=== PATIENT | male | born 1975 | race Caucasian/White ===

== ENCOUNTER 2021-07-08 09:05 | Emergency (ER) | payer OTHER ==
[2021-07-08] MEDS ORDERED: IBUPROFEN 200 MG TAB PO ONE (09:38)
--- NOTE | 2021-07-08 10:45 | RAD REPORT ---
EXAM DESCRIPTION: RAD - Ankle Left 3 View - 07/08/2021 9:59 am CLINICAL HISTORY: Slip and fall, twisting injury, ankle pain COMPARISON: No remote imaging FINDINGS: No fracture, dislocation or periosteal reaction. No joint effusion seen. No joint space na rrowing. Ankle mortise within normal limits. Lateral and anterior soft tissue swelling is present. La rge spur is present at the Achilles attachment site. No foreign body. IMPRESSION: Soft tissue swelling with no left ankle fracture.
--- NOTE | 2021-07-08 10:47 | RAD REPORT ---
EXAM DESCRIPTION: RAD - Foot Right 3 View - 07/08/2021 9:59 am CLINICAL HISTORY: PAIN, slip and fall COMPARISON: No comparisons FINDINGS: No fracture, dislocation or periosteal reaction. Minimal degenerative change at the first MTP joint. There is joint space narrowing but no erosive or spurring component. Large spur at the Achilles attachment. No air or foreign body in the soft tissues. IMPRESSION: Negative right foot examination.
--- NOTE | 2021-07-08 11:09 | ER ---
Nurse's Notes [facility] Name: Lor Connell Age: 46 yrs Sex: Male : 1975 Arrival Date: 07/08/2021 Time: 09:12 Bed 8 Private MD: Diagnosis: Contusion of right foot;Sprain of unspecified ligament of left ankle Presentation: 07/08 09:16 Chief complaint: Patient states: Slipped in the shower last night at 1999, reports left jl7 ankle pain and swelling and pain to plantar aspect of right foot. Coronavirus screen: At this time, the client does not indicate any symptoms associated with coronavirus-19. Ebola Screen: No symptoms or risks identified at this time. Initial Sepsis Screen: Does the patient meet any 2 criteria? No. Patient's initial sepsis screen is negative. Does the patient have a suspected source of infection? No. Patient's initial sepsis screen is negative. Risk Assessment: Do you want to hurt yourself or someone else? Patient reports no desire to harm self or others. Onset of symptoms was July 07, 2021 at 20:00. Care prior to arrival: None. 09:16 Method Of Arrival: Law Enforcement: [place] [employer] jl7 09:16 Acuity: STERLING 4 jl7 Triage Assessment: 09:19 General: Appears in no apparent distress. uncomfortable, Behavior is calm, cooperative, jl7 appropriate for age. Pain: Complains of pain in lateral side of right heel and left lateral malleolus Pain currently is 4 out of 10 on a pain scale. Pain began 1 day ago. Is continuous. Neuro: Level of Consciousness is awake, alert, obeys commands, Oriented to person, place, time, situation. Cardiovascular: Patient's skin is warm and dry. Respiratory: Airway is patent Respiratory effort is even, unlabored, Respiratory pattern is regular, symmetrical. Derm: Skin is pink, warm \T\ dry. Musculoskeletal: Swelling present in left lateral malleolus. Historical: - Allergies: 09:19 Benadryl; jl7 - Home Meds: 09:19 lisinopril 20 mg Oral tab [Active]; jl7 - PMHx: 09:19 Hypertensive disorder; jl7 - PSHx: 09:19 left wrist; jl7 - Immunization history:: Client reports receiving the 2nd dose of the Covid vaccine. - Social history:: Smoking status: Patient denies any tobacco usage or history of. Screenin:21 Abuse screen: Denies threats or abuse. Denies injuries from another. Nutritional jl7 screening: No deficits noted. Tuberculosis screening: No symptoms or risk factors identified. 11:30 Fall Risk None identified. jl7 Assessment: 09:21 General: See triage assessment. jl7 10:30 Reassessment: Patient appears in no apparent distress at this time. Patient and/or jl7 family updated on plan of care and expected duration. Pain level reassessed. Patient is alert, oriented x 3, equal unlabored respirations, skin warm/dry/pink. Patient states symptoms have improved. 11:30 Reassessment: Awaiting crutches from tool crib supervisor. jl7 Vital Signs: 09:16 BP 116 / 82; Pulse 64; Resp 17; Temp 97.4; Pulse Ox 100% on R/A; Weight 83.91 kg; jl7 Height 5 ft. 6 in. (167.64 cm); Pain 4/10; 11:51 BP 141 / 99; Pulse 63; Resp 15; Pulse Ox 97% ; jl7 09:16 Body Mass Index 29.86 (83.91 kg, 167.64 cm) jl7 ED Course: 09:12 Patient arrived in ED. eb 09:16 Trudi Corrigan, RN is Primary Nurse. jl7 09:19 Triage completed. jl7 09:19 Arm band placed on right wrist. jl7 09:21 Patient has correct armband on for positive identification. Bed in low position. Call jl7 light in reach. Side rails up X 1. Security at bedside. Pulse ox on. NIBP on. 09:22 Tesfaye Loja NP is PHCP. jd3 09:22 Fadi Dillon MD is Attending Physician. jd3 10:00 Foot Right 3 View XRAY In Process Unspecified. EDMS 10:00 Ankle Left 3 View XRAY In Process Unspecified. EDMS 11:30 No provider procedures requiring assistance completed. jl7 11:55 Patient did not have IV access during this emergency room visit. Crutch training done. jl7 Air stirrup applied to left ankle. Administered Medications: 09:37 Drug: Ibuprofen 600 mg Route: PO; jl7 10:30 Follow up: Response: No adverse reaction; Pain is decreased jl7 Outcome: 11:08 Discharge ordered by . pm1 11:54 Discharged to Law Enforcement jl7 11:54 Condition: stable 11:54 Discharge instructions given to patient, police, Instructed on discharge instructions, follow up and referral plans. medication usage, crutch walking, Demonstrated understanding of instructions, follow-up care, medications, crutch walking, Prescriptions given X 1. 11:55 Patient left the ED. jl7 Signatures: Dispatcher [employer] EDIN Tesfaye Loja NP FULL STACK NET DEVELOPER pm1 Trudi Corrigan RN RN jl7 Anjum Santillan RN RN jd3 Susanna Arias Corrections: (The following items were deleted from the chart) 11:55 11:30 Patient did not have IV access during this emergency room visit. jl7 11:55 11:30 Crutch training done. Air stirrup applied to left ankle. jl7 jl7
--- NOTE | 2021-07-08 11:09 | EDPHYS ---
Physician Documentation [facility] Name: Lor Connell Age: 46 yrs Sex: Male : 1975 Arrival Date: 07/08/2021 Time: 09:12 Bed 8 Private MD: ED Physician Fadi Dillon HPI: 07/08 10:36 This 46 yrs old Male presents to ER via Law Enforcement with complaints of Ankle Injury.pm1 10:36 The patient presents with pain, that is acute, swelling. The complaints affect the left pm1 ankle. Onset: The symptoms/episode began/occurred yesterday. Context: The problem was sustained at custodial shower, resulted from slipping in the shower. He slipped inverting his left ankle and then hit the right lateral side of his foot against the wall, The patient can fully bear weight on the affected extremity. the patient is able to ambulate. Associated signs and symptoms: Pertinent positives: swelling, of the left lateral malleolus. Modifying factors: The symptoms are alleviated by elevation of extremity. Severity of symptoms: in the emergency department the symptoms are unchanged. Patient reports history of left ankle fracture. The patient has not recently seen a physician. Historical: - Allergies: 09:19 Benadryl; jl7 - Home Meds: 09:19 lisinopril 20 mg Oral tab [Active]; jl7 - PMHx: 09:19 Hypertensive disorder; jl7 - PSHx: 09:19 left wrist; jl7 - Immunization history:: Client reports receiving the 2nd dose of the Covid vaccine. - Social history:: Smoking status: Patient denies any tobacco usage or history of. ROS: 14:43 Constitutional: Negative for fever, chills, and weight loss, Cardiovascular: Negative pm1 for chest pain, palpitations, and edema, Respiratory: Negative for shortness of breath, cough, wheezing, and pleuritic chest pain, Abdomen/GI: Negative for abdominal pain, nausea, vomiting, diarrhea, and constipation. 14:43 Skin: Negative for injury, rash, and discoloration, Neuro: Negative for headache, weakness, numbness, tingling, and seizure. 14:43 MS/extremity: Positive for pain, swelling, tenderness, of the left lateral malleolus, tenderness lateral right foot, Negative for decreased range of motion, deformity. 14:43 All other systems are negative. Exam: 14:43 Constitutional: This is a well developed, well nourished patient who is awake, alert, pm1 and in no acute distress. Head/Face: Normocephalic, atraumatic. 14:43 Skin: Warm, dry with normal turgor. Normal color with no rashes, no lesions, and no evidence of cellulitis. 14:43 Cardiovascular: Exam negative for acute changes, Rate: normal, Rhythm: regular, Pulses: no pulse deficits are appreciated. 14:43 Respiratory: Exam negative for acute changes, respiratory distress, shortness of breath. 14:43 Musculoskeletal/extremity: Extremities: grossly normal except: noted in the left lateral malleolus: swelling, tenderness, There is no evidence of decreased ROM, noted in the lateral side of right foot: tenderness, no evidence of decreased ROM, deformity, ecchymosis, swelling, ROM: intact in all extremities. 14:43 Neuro: Exam negative for acute changes, Orientation: is normal, Mentation: is normal, Motor: moves all fours. Vital Signs: 09:16 BP 116 / 82; Pulse 64; Resp 17; Temp 97.4; Pulse Ox 100% on R/A; Weight 83.91 kg; jl7 Height 5 ft. 6 in. (167.64 cm); Pain 4/10; 11:51 BP 141 / 99; Pulse 63; Resp 15; Pulse Ox 97% ; jl7 09:16 Body Mass Index 29.86 (83.91 kg, 167.64 cm) jl7 MDM: 09:25 Patient medically screened. pm1 11:07 Data reviewed: vital signs. Data interpreted: Pulse oximetry: on room air is 100 %. pm1 Interpretation: normal. Counseling: I had a detailed discussion with the patient and/or guardian regarding: the historical points, exam findings, and any diagnostic results supporting the discharge/admit diagnosis, radiology results, the need for outpatient follow up, a orthopedic surgeon, to return to the emergency department if symptoms worsen or persist or if there are any questions or concerns that arise at home. 07/08 09:30 Order name: Foot Right 3 View XRAY; Complete Time: 11: pm1 07/08 09:30 Order name: Ankle Left 3 View XRAY; Complete Time: 11: pm1 07/08 09:30 Order name: Ice pack; Complete Time: 09:37 pm1 Administered Medications: 09:37 Drug: Ibuprofen 600 mg Route: PO; jl7 10:30 Follow up: Response: No adverse reaction; Pain is decreased jl7 Disposition: 15:47 Co-signature as Attending Physician, Fadi Dillon MD I agree with the assessment and kdr plan of care. Disposition Summary: 07/08/21 11:08 Discharge Ordered Location: Home pm1 Problem: new pm1 Symptoms: have improved pm1 Condition: Stable pm1 Diagnosis - Contusion of right foot pm1 - Sprain of unspecified ligament of left ankle pm1 Followup: pm1 - With: Emergency Department - When: As needed - Reason: Worsening of condition Followup: pm1 - With: Private Physician - When: 2 - 3 days - Reason: Recheck today's complaints, Continuance of care, Re-evaluation by your physician Discharge Instructions: - Discharge Summary Sheet pm1 - Ankle Sprain pm1 - Crutch Use, Adult pm1 - Cast or Splint Care, Adult pm1 Forms: - Medication Reconciliation Form pm1 - Thank You Letter pm1 - Antibiotic Education pm1 - Prescription Opioid Use pm1 Prescriptions: - Diclofenac Sodium 75 mg Oral tablet,delayed release (DR/EC) - take 1 tablet by ORAL route 2 times per day As needed; 30 tablet; Refills: 0, pm1 Product Selection Permitted Signatures: Dispatcher [employer] EDFadi Coreas MD MD kdr Marinas, Patrick, [employer] CERTIFIED DIABETES EDUCATOR pm1 Trudi Corrigan RN RN jl7
[2021-07-08 12:16] VITALS: TEMP 97.4
[2021-07-08 12:17] VITALS: BP 141/99; O2SAT 97
== END 2021-07-08 11:55 | disposition home or self-care (01) ==
LOC: ER 09:05
DX: S93.402A Sprain of unspecified ligament of left ankle, initial encounter (principal); S90.31XA Contusion of right foot, initial encounter; I10 Essential (primary) hypertension; Z88.8 Allergy status to other drugs, medicaments and biological substances
CPT/HCPCS: 99284